=== PATIENT | female | born 1940 | race African-American/Black ===

== ENCOUNTER 2017-07-29 12:05 | Emergency (ER) | payer MEDICARE ==
[~2017-07-29] VITALS: Ht 160 cm; Wt 101.2 kg
--- OUTSIDE RECORDS SUMMARY | ~2017-07-29 | XMS | Clinical Summary ---
Demographics + + + | Address | [address] | | | [place] [address] | + + + | Home Phone | | + + + | Preferred Language | Unknown | + + + | Marital Status | Single | + + + | Taoism Affiliation | UNK | + + + | Race | Black or | + + + | Ethnic Group | Not or | + + + Author + + + | Author | [facility] | + + + | Organization | [facility] | + + + | Address | Unknown | + + + | Phone | Unavailable | + + + Support + + + + + | Name | Relationship | Address | Phone | + + + + + | ULICES NAVAS | ECON | [place] | | + + + + + Care Team Providers + +------+ + | Care Stock And Station Agent Name | Role | Phone | + +------+ + PP | Unavailable | + +------+ + Source Comments MANUEL is fully live on both [facility] and [facility]Patient.[facility] Allergies Not on File Current Medications Not on file Active Problems Not on file Social History + +-------+ +--------+------+ | Tobacco Use | Types | Packs/Day | Years | Date | | | | | Used | | + +-------+ +--------+------+ | Never Assessed | | | | | + +-------+ +--------+------+ + + + | Sex Assigned at | Date Recorded | | | | + + + | Not on file | | + + + Plan of Treatment + + + + + | Health Maintenance | Due Date | Last Done | Comments | + + + + + | INFLUENZA VACCINE | | | | | (FLU SHOT) | 7 | | | + + + + + Results Not on filefrom Last 3 Months"
--- OUTSIDE RECORDS SUMMARY | ~2017-07-29 | XMS | Clinical Summary ---
Demographics + + + | Address | [address] | | | [place] [address] | + + + | Home Phone | | + + + | Preferred Language | Unknown | + + + | Marital Status | | + + + | Buddhist Affiliation | Unknown | + + + | Race | Black or | + + + | Ethnic Group | Not or | + + + Author + + + | Author | [facility] | + + + | Organization | [facility] | + + + | Address | Unknown | + + + | Phone | Unavailable | + + + Care Team Providers + +------+ + | Care Analytics Consultant Name | Role | Phone | + +------+ + PP | Unavailable | + +------+ + Allergies + + + +--------+ + | Active Allergy | Reactions | Severity | Noted | Comments | | | | | Date | | + + + +--------+ + | Codeine | | | | | + + + +--------+ + | Erythromycin Base | | | | | + + + +--------+ + | Penicillins | | | | | + + + +--------+ + Current Medications Not on file Active Problems [...] | + + + + + | Tetanus | | | | | | 2 | | | + + + + + | Zoster Vaccine (#1) | | | | | | 3 | | | + + + + + | Dexascan | | | | | | 8 | | | + + + + + | Pneumo 65+ (1 of 2 - | | | | | PCV13) | 8 | | | + + + + + | IMM Influenza (#1) | | | | | | 7 | | | + + + + + Results Not on filefrom Last 3 Months"
--- OUTSIDE RECORDS SUMMARY | ~2017-07-29 | XMS | Clinical Summary ---
Demographics + + + | Address | [address] | | | [place] [address] | + + + | Home Phone | | + + + | Preferred Language | Unknown | + + + | Marital Status | Single | + + + | Scientologist Affiliation | UNK | + + + [...] Team Providers + +------+ + | Care Phlebotomy Director Name | Role | Phone | + +------+ + PP | Unavailable | + +------+ + Source Comments MANUEL is fully live on both [facility] and [facility] InPatient.[facility] Allergies Not on File Current Medications Not [...]
--- OUTSIDE RECORDS SUMMARY | ~2017-07-29 | XMS | Clinical Summary ---
Demographics + + + | Address | [address] | | | [place] [address] | + + + | Home Phone [...] Team Providers + +------+ + | Care Vice President Sales Name | Role | Phone | + [...]
[~2017-07-29 12:05] MED LIST: ALBUTEROL S5 MG/1 ML INH; ANTIVERT25 MG PO; ASPIRIN EC81 MG PO; ATENOLOL25 MG PO; CALCIUM600 MG PO; COZAAR25 MG PO; FLUTICASONE PRO16 GM NS; FOLIC ACID1 MG PO; HUMALOG100 UNIT/1 SUB-Q; LANTUS100 UNITS/ SUB-Q; MAGNESIUM GLUCO27 MG PO; METFORMIN HCL1000 MG PO; METHOTREXATE2.5 MG PO; MOMETASONE FURO30 ML TOP; MONTELUKAST SOD10 MG PO; OMEGA 3 1,0001 EACH PO; OMEPRAZOLE20 MG PO; OXYBUTYNIN CHLOR5 MG PO; SIMVASTATIN80 MG PO; TRIAMTERENE-HC1 EAC2 PO; VITAMIN D5000 UNIT PO
== END 2017-07-29 12:30 | disposition home or self-care (01) ==
LOC: ED 12:05
DX: R05 Cough (principal); R09.89 Other specified symptoms and signs involving the circulatory and respiratory systems; J02.9 Acute pharyngitis, unspecified; R50.9 Fever, unspecified

== ENCOUNTER 2017-09-16 07:30 | Day surgery (SDC) | payer MEDICARE ==
[~2017-09-16] VITALS: Ht 160 cm; Wt 97.5 kg
--- NOTE | 2017-09-16 09:59 | NUR ---
09/16/17 0959 Venus Vasques 0953-PATIENT ARRIVED TO PACU ON 6L MASK O2 SAT 100% PACKING TO LEFT NARE CDI. RR EVEN. 0958-PATIENT AROUSABLE TO VERBAL STIMULI DENIES PAIN OR NAUSEA REPORTS COLD. WILL GIVE WARM BLANKETS.
--- NOTE | 2017-09-16 10:42 | NUR ---
ICED WATER GIVEN. PT UP TO BR W/RN STANDBY. PT AMBULATES WELL AND DENIES DIZZINESS. PT IS INCONTINENT OF URINE IN THE BED. LINENS ARE CHANGED. PATIENT REMOVES HER UNDERWEAR AND THEY ARE PLACED IN A PLASTIC BAG AND PLACED IN HER PERSONAL BELONGING BAG. PT REPORTS SUCCESSFUL VOID AND PLACES HER PANTS ON. PT IS SITTING ON THE EDGE OF THE BED. CALL LIGHT IS W/IN REACH AND SHE DENIES ADD'L NEEDS @ THIS TIME.
--- NOTE | 2017-09-16 12:45 | NUR ---
1120: VS CHECKED. PATIENT STATES READY TO GO HOME. NASAL PACKING IN PLACE IN LEFT NARE. DISCHARGE INSTRUCTIONS GIVEN TO PATIENT AND DAUGHTER. IV DC'D WNL. 1132: PATIENT DISCHARGED TO HOME VIA WHEELCHAIR WITH DAUGHTER.
--- NOTE | 2017-10-28 14:26 | OR ---
[facility] [address] [place], [place] [address] Signed DATE OF OPERATION: 09/16/2017 SURGEON: Kwabena Ramires MD PREOPERATIVE DIAGNOSIS: Left nasal septal lesion. POSTOPERATIVE DIAGNOSIS: Left nasal septal lesion. PROCEDURE: Biopsy of left nasal septal lesion with cautery of epistaxis. ANESTHESIA: General LMA; LACE WEAVER, Landon. PREOPERATIVE HISTORY: Rosalinda is a 77-year-old lady with a nonhealing lesion on the left septum, this has been bleeding. She has not responded to office based cautery several times and she is being taken the operating for the above-mentioned procedures. OPERATIVE PROCEDURE AND FINDINGS: After informed consent, the patient was taken to the operating room, placed in supine position where general LMA anesthesia was induced. The patient and procedure were verified. Headlight speculum exam of the nasal cavity showed normal anatomy on the right. On the left, there was a nickel sized ulceration on the left septum just posterior to Kiesselbach's plexus, there was granular tissue, several biopsies with the cup biopsy forceps were taken, sent to pathology. Bleeding was prominent, controlled with suction cautery. A good eschar was formed. No further abnormalities are identified. No further bleeding. A trimmed Merocel pack coated with Neosporin was placed in the left nasal cavity. The patient was then awakened, extubated, and transported to recovery room in good condition. No complications. BLOOD LOSS: Minimal. SPECIMEN: To pathology. DRAINS: Electronically Signed By: KWABENA RAMIRES MD 10/28/17 1426 PATIENT NAME: ROSALINDA NAVAS OPERATIVE REPORT DATE OF : 44 REPORT #: [id number] PHYSICIAN: KWABENA RAMIRES MD PCP: MONSERRAT WILLIAMSON MD REPORT IS CONFIDENTIAL AND NOT TO BE RELEASED WITHOUT AUTHORIZATION [address] [place], [place] [address] Signed No drains. PACKING: One piece of Merocel, left nostril. Kwabena Ramires MD GC/MODL /[id number] Copies: ~ Electronically Signed By: KWABENA RAMIRES MD 10/28/17 1426 PATIENT NAME: ROSALINDA NAVAS OPERATIVE REPORT DATE OF : 44 REPORT #: [id number] PHYSICIAN: KWABENA RAMIRES MD PCP: MONSERRAT WILLIAMSON MD REPORT IS CONFIDENTIAL AND NOT TO BE RELEASED WITHOUT AUTHORIZATION
== END 2017-09-16 11:32 | disposition home or self-care (01) ==
LOC: OPS 07:30 → DS 07:30 → OPS 09:00
PROVIDERS: Otolaryngology
PROC: 0W3Q7ZZ Control Bleeding in Respiratory Tract, Via Natural or Artificial Opening (ICD-10-PCS; 2017-09-16)
PROC: 09BKXZX Excision of Nasal Mucosa and Soft Tissue, External Approach, Diagnostic (ICD-10-PCS; principal; 2017-09-16 09:00)
DX: J34.81 Nasal mucositis (ulcerative) (principal); J45.909 Unspecified asthma, uncomplicated; E11.9 Type 2 diabetes mellitus without complications; F17.210 Nicotine dependence, cigarettes, uncomplicated; N39.0 Urinary tract infection, site not specified; I10 Essential (primary) hypertension; L40.9 Psoriasis, unspecified; Z79.4 Long term (current) use of insulin; Z79.82 Long term (current) use of aspirin; Z79.899 Other long term (current) drug therapy; Z88.5 Allergy status to narcotic agent
CPT/HCPCS: 00160; 88305; 88342; J0690; J2405; J2704; J2765; J3010; J7120

== ENCOUNTER 2019-11-30 06:50 | Day surgery (SDC) | payer MEDICARE ==
[~2019-11-30] VITALS: Ht 160 cm; Wt 82.5 kg
--- NOTE | 2019-11-30 09:18 | NUR ---
11/30/19 0918 Venus Vasques 0908-PATIENT ARRIVED TO PACU ON 2L NC RR EVEN. LAYING LEFT LATERAL. IVF INFUSING. PATIENT REACTIVE TO VERBAL STIMULI OPENING EYES HOB ELEVATED. DOZES BACK TO SLEEP. 15-GLUCOSE CHECKED 130.
--- NOTE | 2019-12-01 06:47 | OR ---
[facility] [address] [place], [place] [address] Signed DATE OF OPERATION: 11/30/2019 SURGEON: Irlanda Wei MD PREOPERATIVE DIAGNOSES: 1. Anemia. 2. Moderate-sized hiatal hernia. 3. Gastroesophageal reflux disease. 4. Personal history of adenomatous colonic polyps in 2007 and 2014. 5. Diverticulosis. 6. Internal hemorrhoids. POSTOPERATIVE DIAGNOSES: 1. Mild diffuse gastritis. 2. Moderate-sized hiatal hernia. 3. A 4 mm polyp at 40 cm. 4. Moderate sigmoid diverticulosis. 5. Moderate internal hemorrhoids. 6. Long redundant colon. PROCEDURE: 1. EGD with CLOtest and biopsies of the antrum. 2. Colonoscopy with hot biopsy. ESTIMATED BLOOD LOSS: None. INDICATIONS: Leah is a 79-year-old obese diabetic female, who has had trouble with ongoing anemia. Her methotrexate was stopped and yet she still has anemia. She has been using iron pills without success. She has had previous upper and lower endoscopies. Nevertheless, she has been asked to come back for repeat upper and lower endoscopy given her current situation. We are well aware that she has a moderate-sized hiatal hernia with acid reflux. We know she has had adenomatous polyps removed. We know she has diverticulosis along with some internal hemorrhoids. Overall, she does not seem to have any upper or lower GI complaints. We know she has chronic constipation and she does require double bowel prep. She told me she avoids NSAIDs because of the diabetes, but does use aspirin. She has always done well with Versed and fentanyl in the past. In the office, I gave her pamphlets on both upper and lower endoscopy. We reviewed the nature of the two tests along with the risks including, but not limited to gas bloating, crampy Electronically Signed By: IRLANDA WEI MD 12/01/19 0647 PATIENT NAME: LEAH NAVAS OPERATIVE REPORT DATE OF : 44 REPORT #: [id number] PHYSICIAN: IRLANDA WEI MD PCP: MUMTAZ BAKER MD REPORT IS CONFIDENTIAL AND NOT TO BE RELEASED WITHOUT AUTHORIZATION [facility] [address] [place], [place] [address] Signed abdominal pain, bleeding, perforation requiring surgery, and missed diagnosis. We also discussed the need for IV conscious sedation. She had expressed understanding and wished to proceed. DESCRIPTION OF PROCEDURE: Leah was taken into our endoscopy suite and placed in the supine semi-recumbent position. The posterior oropharynx was anesthetized with lidocaine spray. A bite block was utilized for the case. She told me the double bowel prep seemed to work out pretty well. She was given a total of 8 mg of Versed and 150 mcg of fentanyl to cover both procedures. The adult gastroscope was introduced and advanced out into the third portion of the duodenum under direct visualization of camera without difficulty. The duodenum and pyloric channel were unremarkable. She had very mild patchy gastritis in her stomach. We took a biopsy of the antrum for CLOtest as well as pathologic review. We took pictures throughout for photodocumentation. Upon retroflexion of scope, we can see her moderate-sized hiatal hernia once again. No gastric or esophageal varices. No stricture at the GE junction. She has minimal disruption to the Z-line. There was no Willis's mucosa and no distal esophagitis. The middle and upper esophagus were unremarkable. After this, the gas was suctioned out and the gastroscope removed. Leah tolerated the procedure quite well. Yadira was rotated into the left lateral decubitus position. She was maintained on IV sedation with Versed and fentanyl. A digital rectal exam was performed and she does have some very small external hemorrhoid tissue. The adult colonoscope was then introduced and advanced under direct visualization of camera. She does have a very long redundant colon. We had to move the camera back and forth and used abdominal compression and additional sedation in order to get the scope into the right colon. We could see the ileocecal valve in the cecum. The only place we did not see was immediately behind the ileocecal valve. Her prep was quite excellent on this occasion. She may have very mild melanosis coli, but it would be extremely mild. We did not take any biopsies in that regard. The scope was slowly withdrawn. She had a tiny polyp back at 40 cm, which we removed with hot biopsy forceps. She does have moderate sigmoid diverticulosis. They are moderate in size, moderate in number, and scattered about. The rectum was unremarkable. Upon retroflexion of scope, she does have minimal to moderate internal hemorrhoids with associated skin tags. After this, the gas was suctioned out and the colonoscope removed. Leah tolerated the procedure quite well. RECOMMENDATIONS: I will see Leah back in my office in 7 to 14 days to review her results. She will need a colonoscopy every 5 years with a double bowel prep. Electronically Signed By: IRLANDA WEI MD 12/01/19 0647 PATIENT NAME: LEAH NAVAS OPERATIVE REPORT DATE OF : 44 REPORT #: [id number] PHYSICIAN: IRLANDA WEI MD PCP: MUMTAZ BAKER MD REPORT IS CONFIDENTIAL AND NOT TO BE RELEASED WITHOUT AUTHORIZATION [address] [place], [place] [address] Signed Irlanda Wei MD ALB/MODL /[id number] cc: MD Irlanda Hugo MD Copies: IRLANDA WEI MD ~ Electronically Signed By: IRLANDA WEI MD 12/01/19 0647 PATIENT NAME: LEAH NAVAS OPERATIVE REPORT DATE OF : 44 REPORT #: [id number] PHYSICIAN: IRLANDA WEI MD PCP: MUMTAZ BAKER MD REPORT IS CONFIDENTIAL AND NOT TO BE RELEASED WITHOUT AUTHORIZATION
--- NOTE | 2019-12-01 14:55 | PATH ---
[facility] [address] [place], [place] [address] Signed SPECIMEN(S): A ANTRUM/PYLORUS SPECIMEN(S): B BODY SPECIMEN(S): C COLON POLYP AT 40 CM SPECIMEN SOURCE: A. ANTRUM/PYLORUS B. BODY C. COLON POLYP AT 40 CM CLINICAL HISTORY: Anemia; GERD; H/H; Hx polyps/ mild gastritis. MICROSCOPIC DESCRIPTION: Histologic sections of all submitted blocks are examined by light microscopy. These findings, together with the gross examination, support the pathologic diagnosis. FINAL PATHOLOGIC DIAGNOSIS: A. Stomach, antrum/pylorus, biopsy: - Antral mucosa with reactive gastropathy. - Negative for Helicobacter organisms on HE stain. - Negative for dysplasia or malignancy. B. Stomach, body, biopsy: - Oxyntic mucosa with changes seen with PPI therapy. - Fundic gland polyp. - Negative for Helicobacter organisms on HE stain. - Negative for dysplasia or malignancy. C. Colon, polyp at 40 cm, polypectomy: - Severely cauterized colonic mucosa with epithelial atypia, see Comment. - Negative for high-grade dysplasia or malignancy. - See Comment. COMMENT: Regarding specimen C: Multiple additional levels were examined. The degree of cautery artifact precludes definitive evaluation for low-grade dysplasia. However, the epithelial atypia, though cauterized, raises the possibility of a tubular adenoma. If clinical concern remains, a repeat biopsy may be helpful. NAL:cml:C2NR GROSS DESCRIPTION: Three specimens are received in three containers, labeled "JW." PATIENT NAME: ROLANDO NAVAS PATHOLOGY DATE OF : 44 REPORT #: [id number] PHYSICIAN: HINA WILEY PCP: MUMTAZ BAKER MD REPORT IS CONFIDENTIAL AND NOT TO BE RELEASED WITHOUT AUTHORIZATION [facility] [address] [place], [place] [address] Signed A. The specimen, labeled "JW, antrum biopsy," is received in formalin and consists of one baca soft tissue fragment(s) that measure 0.2 cm in greatest dimension. The specimen is entirely submitted in cassette (A1). B. The specimen, labeled "JW, stomach body biopsy," is received in formalin and consists of one baca soft tissue fragment(s) that measure 0.3 cm in greatest dimension. The specimen is entirely submitted in cassette (B1). C. The specimen, labeled "JW, colon polyp at 40 cm," is received in formalin and consists of one baca soft tissue fragment(s) that measure 0.2 cm in greatest dimension. The specimen is entirely submitted in cassette (C1). JS (under the direct supervision of a pathologist) The Gross Description was prepared using a voice recognition system. The report was reviewed for accuracy; however, sound-alike word errors, addition and/or deletions may occur. If there is any question about this report, please contact Client Services. PERFORMING LABORATORY: The technical component was performed by [facility] [address] [place] [id number] (Manager Mba: Jaye Thompson MD; CLIA# [id number]). Professional interpretation was performed by [facility], [address] [address] (CLIA# [id number]). Diagnostician: Gayathri Harrell MD Pathologist Electronically Signed 12/01/2019 Copies: ~ PATIENT NAME: ELOISEROLANDO SHAMIR PATHOLOGY DATE OF : 44 REPORT #: [id number] PHYSICIAN: HINA PATHOLOGY PCP: MUMTAZ BAKER MD REPORT IS CONFIDENTIAL AND NOT TO BE RELEASED WITHOUT AUTHORIZATION
== END 2019-11-30 10:25 | disposition home or self-care (01) ==
LOC: DS 06:50 → OPS 06:50 → DS 08:15 → OPS 08:15
PROVIDERS: Colon & Rectal Surgery
PROC: 0DBE8ZZ Excision of Large Intestine, Via Natural or Artificial Opening Endoscopic (ICD-10-PCS; principal; 2019-11-30 08:15)
PROC: 0DB78ZX Excision of Stomach, Pylorus, Via Natural or Artificial Opening Endoscopic, Diagnostic (ICD-10-PCS; 2019-11-30 08:15)
DX: K64.8 Other hemorrhoids (principal); K57.30 Diverticulosis of large intestine without perforation or abscess without bleeding; K31.7 Polyp of stomach and duodenum; D50.9 Iron deficiency anemia, unspecified; K44.9 Diaphragmatic hernia without obstruction or gangrene; K21.9 Gastro-esophageal reflux disease without esophagitis; I10 Essential (primary) hypertension; J45.909 Unspecified asthma, uncomplicated; E11.9 Type 2 diabetes mellitus without complications; Z86.010 Personal history of colon polyps; Z79.899 Other long term (current) drug therapy; Z79.82 Long term (current) use of aspirin; Z79.84 Long term (current) use of oral hypoglycemic drugs
CPT/HCPCS: 86677; 99153; G0500; J2250; J3010